=== PATIENT | female | born 1935 | race Caucasian/White ===

== ENCOUNTER 2020-01-06 12:38 | Emergency (ER) | payer MEDICARE, OTHER ==
[~2020-01-06] VITALS: Ht 167.6 cm; Wt 60.9 kg
[~2020-01-06 12:38] MED LIST: ASPI-611 PO; CARV6.253 PO; FURO40TA4 PO; LEVO75TA57 PO; LISI-644 PO; METF500T PO; POTA10TA10 PO; SIMV-42 PO
[2020-01-06 12:53] VITALS: BP 140/67
[2020-01-06] MEDS ORDERED: HYDROcodone/acetaminophen 5mg/325mg tablet PO ONE (13:45)
[2020-01-06] MEDS ORDERED: ondansetron 4mg rapidly disintigrating tab PO ONE (13:45)
[2020-01-06] MEDS ORDERED: ONDA4TAB6 PO (14:23)
[2020-01-06] MEDS ORDERED: HYDR-4383 PO (14:23)
== END 2020-01-06 14:43 | disposition home or self-care (01) ==
LOC: ER 12:38
DX: S52.591A Other fractures of lower end of right radius, initial encounter for closed fracture (principal); S52.691A Other fracture of lower end of right ulna, initial encounter for closed fracture; S52.611A Displaced fracture of right ulna styloid process, initial encounter for closed fracture; I10 Essential (primary) hypertension; E11.9 Type 2 diabetes mellitus without complications; Z90.49 Acquired absence of other specified parts of digestive tract; Z90.710 Acquired absence of both cervix and uterus; Z98.890 Other specified postprocedural states; Z91.013 Allergy to seafood; Z79.82 Long term (current) use of aspirin; Z79.899 Other long term (current) drug therapy; W17.89XA Other fall from one level to another, initial encounter; Y93.89 Activity, other specified; Y92.89 Other specified places as the place of occurrence of the external cause; Y99.8 Other external cause status
CPT/HCPCS: 29125; 73110; 99284

== ENCOUNTER 2020-06-23 05:50 | Day surgery (SDC) | payer MEDICARE, OTHER ==
[2020-06-16 15:48] LABS: BASOPHILS # (AUTO) 0.1 X10'3 (0-0.2); EOSINOPHILS # (AUTO) 0.2 X10'3 (0-0.9); EOSINOPHILS % (AUTO) 2.6 % (0-6); LYMPHOCYTES # (AUTO) 1.7 X10'3 (1.1-4.8); LYMPHOCYTES % (AUTO) 24.1 % (21-51); MEAN CORPUSCULAR HEMOGLOBIN 32.8 PG (27.0-31.0); MEAN CORPUSCULAR HGB CONC 32.9 g/dL (33.0-36.5); MEAN CORPUSCULAR VOLUME 99.7 FL (78-98); MEAN PLATELET VOLUME 8.1 FL (7.4-10.4); MONOCYTES # (AUTO) 0.9 X10'3 (0-0.9); MONOCYTES % (AUTO) 12.3 % (2-12); NEUTROPHILS # (AUTO) 4.2 X10'3 (1.8-7.7); PRE OP HEMATOCRIT 36.7 % (35.0-45.0); PRE OP HEMOGLOBIN 12.1 g/dL (12.0-16.0); PRE OP PLATELET COUNT 202 X10'3 (140-440); RED BLOOD COUNT 3.68 X10'6 (4.20-5.60); RED CELL DISTRIBUTION WIDTH 15.4 % (11.5-14.5)
[2020-06-16 16:03] LABS: ALBUMIN 4.1 G/DL (3.4-5.0); ALBUMIN/GLOBULIN RATIO 1.3 (1.1-1.5); ALKALINE PHOSPHATASE 64 IU/L (46-116); BLOOD UREA NITROGEN 20 MG/DL (7-18); BUN/CREATININE RATIO 19.8 (6.6-38.0); CALCIUM 9.2 MG/DL (8.5-10.1); CHLORIDE 106 MMOL/L (99-107); CREATININE 1.01 MG/DL (0.40-0.90); PRE OP ALT 19 U/L (30-65); PRE OP ANION GAP 8 (8-16); PRE OP AST 15 U/L (10-37); PRE OP BILIRUB, TOTAL 0.6 MG/DL (0.0-1.0); PRE OP GLUCOSE 118 MG/DL (70-104); PRE OP POTASSIUM 4.5 MMOL/L (3.4-5.1); PRE OP SODIUM 140 MMOL/L (135-145); TOTAL CARBON DIOXIDE 26.1 MMOL/L (24-32); TOTAL PROTEIN 7.2 G/DL (6.4-8.2); eGFR 52 ML/MIN
[~2020-06-23] VITALS: Ht 167.6 cm; Wt 71.7 kg
[~2020-06-23 05:50] MED LIST changes: +ACET-3080 PO; +ALLO300T35 PO; +AMLO5TAB16 PO; +ASPI-109 PO; -ASPI-611 PO; +DOCUMENT DATE & TIME OF BETA-BLOCKER PO ONE; -LEVO75TA57 PO; +LEVO88TA2 PO; -LISI-644 PO; +OLME40TA13 PO; +ceFAZolin 1GM/D5W- ADD-VANTAGE 50 ML IV ONE; +famotidine 20mg tablet PO ONE; +ringers solution, lacted 1,000 ML IV SCH
[2020-06-23 05:55] VITALS: BP 152/76
[2020-06-23] MEDS ORDERED: BUPIVAcaine/PF 2.5 mg/ml (0.25%) 30ml vial ONE (06:45)
[2020-06-23] MEDS ORDERED: BUPIVAcaine/PF 2.5mg/ml (0.25%) 10ml vial ONE (06:45)
[2020-06-23] MEDS ORDERED: LIDOcaine 0.5% (5mg/ml) 50ml vial ONE (06:49)
[2020-06-23] MEDS ORDERED: meperidine/PF 25mg/ml syringe IV PRN ×3 (06:55)
[2020-06-23] MEDS ORDERED: ringers solution, lacted 1,000 ML IV SCH (06:55)
[2020-06-23] MEDS ORDERED: morphine 4 MG/ML inj SYRINge IV PRN (06:55)
[2020-06-23] MEDS ORDERED: ondansetron/PF 4mg/2ml inj IV PRN (06:55)
[2020-06-23] MEDS ORDERED: morphine 2 MG/ML inj. syringe IV PRN (06:55)
[2020-06-23] MEDS ORDERED: proCHLORperazine 10 MG/2 ml inj IV PRN (06:55)
[2020-06-23] MEDS ORDERED: midazolam 2 mg/2 ml injection ONE (07:59)
[2020-06-23] MEDS ORDERED: fentaNYL/PF 50MCG/1 ML 2ML syringe ONE (07:59)
[2020-06-23] MEDS ORDERED: propofol inj 20 ML IV ONE (08:11)
[2020-06-23 08:26] VITALS: BP 124/61
--- NOTE | 2020-06-23 08:26 | NUR ---
Received from OR via [facility], accompanied by Anesthesiologist DR BENITEZ and report given by Anesthesiologist. 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 Addendum: 06/23/20 at 0841 by Charlotte Lawrence RN Amended: Links added.
[2020-06-23 08:36] VITALS: BP 104/63
[2020-06-23 08:46] VITALS: BP 125/63
[2020-06-23 08:56] VITALS: BP 130/66
[2020-06-23 09:06] VITALS: BP 134/66
--- NOTE | 2020-06-23 09:26 | NUR ---
PT UP TO BATHROOM, STEADY ON FEET, D/C INSTRUCTIONS GIVEN AND GONE OVER, PT VERBALIZED UNDERSTANDING, PT D/CD TO HOME VIA W/C TO PRIVATE VEHICLE W/O INCIDENT. Addendum: 06/23/20 at 0929 by Charlotte Lawrence RN Amended: Links added.
== END 2020-06-23 09:26 | disposition home or self-care (01) ==
LOC: PAS 05:50
PROVIDERS: ATTEND Orthopaedic Surgery Hand Surgery
DX: G56.01 Carpal tunnel syndrome, right upper limb (principal); E11.9 Type 2 diabetes mellitus without complications; E03.9 Hypothyroidism, unspecified; I10 Essential (primary) hypertension; Z11.59 Encounter for screening for other viral diseases; Z79.899 Other long term (current) drug therapy; Z90.710 Acquired absence of both cervix and uterus; Z90.49 Acquired absence of other specified parts of digestive tract; Z98.890 Other specified postprocedural states; Z96.653 Presence of artificial knee joint, bilateral; Z96.611 Presence of right artificial shoulder joint; Z79.84 Long term (current) use of oral hypoglycemic drugs
CPT/HCPCS: 36415; 64721; 80053; 82948; 85025; 93005; A6222; J0690; J2001; J2250; J2704; J3010; J3490; U0003; A4215; J7120

== ENCOUNTER 2022-12-31 08:42 | Outpatient (CLI) | payer MEDICARE ==
[~2022-12-31] VITALS: Ht 167.6 cm; Wt 70.3 kg
[~2022-12-31 08:42] MED LIST changes: -DOCUMENT DATE & TIME OF BETA-BLOCKER PO ONE; -OLME40TA13 PO; +OLME40TA70 PO; +POTA-188 PO; -POTA10TA10 PO; -ceFAZolin 1GM/D5W- ADD-VANTAGE 50 ML IV ONE; -famotidine 20mg tablet PO ONE; -ringers solution, lacted 1,000 ML IV SCH
[2022-12-31 10:11] LABS: ALBUMIN 4.1 G/DL (3.4-5.0); ALBUMIN/GLOBULIN RATIO 1.4 (1.1-1.5); ALKALINE PHOSPHATASE 67 IU/L (46-116); BLOOD UREA NITROGEN 19 MG/DL (7-18); BUN/CREATININE RATIO 22.1 (6.6-38.0); CALCIUM 9.1 MG/DL (8.5-10.1); CHLORIDE 105 MMOL/L (99-107); CREATININE 0.86 MG/DL (0.40-0.90); PRE OP ALT 15 U/L (30-65); PRE OP ANION GAP 12 (8-16); PRE OP AST 17 U/L (10-37); PRE OP BILIRUB, TOTAL 0.6 MG/DL (0.0-1.0); PRE OP GLUCOSE 130 MG/DL (70-104); PRE OP POTASSIUM 3.9 MMOL/L (3.4-5.1); PRE OP SODIUM 143 MMOL/L (135-145); TOTAL CARBON DIOXIDE 26.5 MMOL/L (24-32); TOTAL PROTEIN 7.1 G/DL (6.4-8.2); eGFR 62 ML/MIN
[2022-12-31 10:19] LABS: BASOPHILS # (AUTO) 0.1 X10'3 (0-0.2); BASOPHILS % (AUTO) 1.1 % (0-1); EOSINOPHILS # (AUTO) 0.3 X10'3 (0-0.9); EOSINOPHILS % (AUTO) 4.4 % (0-6); LYMPHOCYTES # (AUTO) 1.3 X10'3 (1.1-4.8); LYMPHOCYTES % (AUTO) 21.7 % (21-51); MEAN CORPUSCULAR HEMOGLOBIN 30.6 PG (27.0-31.0); MEAN CORPUSCULAR HGB CONC 32.4 g/dL (33.0-36.5); MEAN CORPUSCULAR VOLUME 94.6 FL (78-98); MONOCYTES # (AUTO) 0.6 X10'3 (0-0.9); MONOCYTES % (AUTO) 9.1 % (2-12); NEUTROPHILS # (AUTO) 3.9 X10'3 (1.8-7.7); NEUTROPHILS % (AUTO) 63.7 % (42-75); PRE OP HEMATOCRIT 36.6 % (35.0-45.0); PRE OP HEMOGLOBIN 11.9 g/dL (12.0-16.0); PRE OP PLATELET COUNT 200 X10'3 (140-440); RED BLOOD COUNT 3.87 X10'6 (4.20-5.60); RED CELL DISTRIBUTION WIDTH 15.2 % (11.5-14.5)
[2023-01-03] MEDS ORDERED: ringers solution, lacted 1,000 ML IV SCH (05:00)
[2023-01-03] MEDS ORDERED: famotidine 20mg tablet PO ONE (05:30)
[2023-01-03] MEDS ORDERED: ceFAZolin inj. 2,000 MG in dextrose 5%-water 100 ML IV ONE (05:30)
[2023-01-03] MEDS ORDERED: DOCUMENT DATE & TIME OF BETA-BLOCKER PO ONE (05:30)
== END 2022-12-31 23:59 | disposition home or self-care (01) ==
LOC: LAB 08:42 → EDSTATUS 01-03 08:45
PROVIDERS: ATTEND Orthopaedic Surgery Hand Surgery
DX: Z01.818 Encounter for other preprocedural examination (principal); G56.02 Carpal tunnel syndrome, left upper limb; E11.9 Type 2 diabetes mellitus without complications; I10 Essential (primary) hypertension; E03.9 Hypothyroidism, unspecified; Z88.5 Allergy status to narcotic agent; Z79.899 Other long term (current) drug therapy; Z79.84 Long term (current) use of oral hypoglycemic drugs; Z96.653 Presence of artificial knee joint, bilateral; Z96.611 Presence of right artificial shoulder joint; Z90.710 Acquired absence of both cervix and uterus
CPT/HCPCS: 36415; 80053; 85025; 93005; J0690; J7060; J7120

== ENCOUNTER 2023-02-10 05:17 | Day surgery (SDC) | payer MEDICARE ==
[2023-02-05 14:57] LABS: BASOPHILS % (AUTO) 0.6 % (0-1); EOSINOPHILS # (AUTO) 0.2 X10'3 (0-0.9); EOSINOPHILS % (AUTO) 3.1 % (0-6); LYMPHOCYTES # (AUTO) 1.4 X10'3 (1.1-4.8); MEAN CORPUSCULAR HEMOGLOBIN 31.7 PG (27.0-31.0); MEAN CORPUSCULAR HGB CONC 33.4 g/dL (33.0-36.5); MEAN CORPUSCULAR VOLUME 94.9 FL (78-98); MEAN PLATELET VOLUME 8.8 FL (7.4-10.4); MONOCYTES # (AUTO) 0.7 X10'3 (0-0.9); MONOCYTES % (AUTO) 8.9 % (2-12); NEUTROPHILS # (AUTO) 5.5 X10'3 (1.8-7.7); NEUTROPHILS % (AUTO) 69.4 % (42-75); PRE OP HEMATOCRIT 38.5 % (35.0-45.0); PRE OP HEMOGLOBIN 12.9 g/dL (12.0-16.0); PRE OP PLATELET COUNT 194 X10'3 (140-440); RED BLOOD COUNT 4.06 X10'6 (4.20-5.60); RED CELL DISTRIBUTION WIDTH 15.3 % (11.5-14.5)
[2023-02-05 15:12] LABS: ALBUMIN/GLOBULIN RATIO 1.2 (1.1-1.5); ALKALINE PHOSPHATASE 81 IU/L (46-116); BLOOD UREA NITROGEN 17 MG/DL (7-18); BUN/CREATININE RATIO 23.6 (10.0-20.0); CALCIUM 9.5 MG/DL (8.5-10.1); CHLORIDE 106 MMOL/L (99-107); CREATININE 0.72 MG/DL (0.40-0.90); PRE OP ALT 16 U/L (30-65); PRE OP ANION GAP 8 (8-16); PRE OP AST 18 U/L (10-37); PRE OP BILIRUB, TOTAL 0.4 MG/DL (0.0-1.0); PRE OP GLUCOSE 108 MG/DL (70-104); PRE OP POTASSIUM 4.5 MMOL/L (3.4-5.1); PRE OP SODIUM 141 MMOL/L (135-145); TOTAL CARBON DIOXIDE 26.9 MMOL/L (24-32); TOTAL PROTEIN 7.4 G/DL (6.4-8.2); eGFR 77 ML/MIN
[2023-02-10] VITALS (7 sets, daily range): BP systolic 128–145; BP diastolic 72–82
[~2023-02-10] VITALS: Ht 167.6 cm; Wt 70.9 kg
[~2023-02-10 05:17] MED LIST changes: +ringers solution, lacted 500 ML IV SCH
[2023-02-10] MEDS ORDERED: DOCUMENT DATE & TIME OF BETA-BLOCKER PO ONE (05:30)
[2023-02-10] MEDS ORDERED: famotidine 20mg tablet PO ONE (05:30)
[2023-02-10] MEDS ORDERED: cefazolin 2gm/D5W 100mL 100 ML IV ONE (05:30)
[2023-02-10] MEDS ORDERED: BUPIVAcaine/PF 2.5 mg/ml (0.25%) 30ml vial ONE (06:42)
[2023-02-10] MEDS ORDERED: ondansetron/PF 4mg/2ml inj IV PRN (07:10)
[2023-02-10] MEDS ORDERED: labetalol 20mg/4ml (5mg/ml) syringe IV PRN (07:10)
[2023-02-10] MEDS ORDERED: ringers solution, lacted 1,000 ML IV SCH (07:10)
[2023-02-10] MEDS ORDERED: morphine 2 MG/ML inj. syringe IV PRN (07:10)
[2023-02-10] MEDS ORDERED: morphine 4 MG/ML inj SYRINge IV PRN (07:10)
[2023-02-10] MEDS ORDERED: fentaNYL/PF 50MCG/1 ML 2ML syringe ONE (07:21)
[2023-02-10] MEDS ORDERED: MIDAZolam 1 MG/ML 5ML VIAL ONE (07:21)
[2023-02-10] MEDS ORDERED: LIDOcaine 0.5% (5mg/ml) 50ml vial ONE (07:22)
--- NOTE | 2023-02-10 07:47 | NUR ---
Received from OR via [facility] TO ROOM 6 RECOVERY, accompanied by Anesthesiologist TWIN and report given by Anesthesiolgist. PT PRESENTS WITH PIV 20G RIGHT AC, DRESING ON LEFT HAND/WRIST CDI, VSS. Addendum: 02/10/23 at 0810 by Terra Lopes RN, RN Amended: Links added.
--- NOTE | 2023-02-10 08:47 | NUR ---
ABLE TO SAFELY AMBULATE AND TRANSFER SELF. IV TAKEN OUT WITHOUT ANY COMPLICATIONS. ALL DISCHARGE INSTRUCTIONS COVERED WITH PATIENT AND ALL QUESTIONS ANSWERED. PATIENT TAKEN OUT VIA WHEELCHAIR TO PERSONAL VEHICLE WHERE FAMILY/FRIEND DROVE PATIENT HOME. Addendum: 02/10/23 at 0915 by Terra Lopes RN, RN Amended: Links added.
== END 2023-02-10 08:37 | disposition home or self-care (01) ==
LOC: PAS 05:17
PROVIDERS: ATTEND Orthopaedic Surgery Hand Surgery
DX: G56.02 Carpal tunnel syndrome, left upper limb (principal); Z79.899 Other long term (current) drug therapy; Z90.710 Acquired absence of both cervix and uterus; Z90.49 Acquired absence of other specified parts of digestive tract; I10 Essential (primary) hypertension; E11.9 Type 2 diabetes mellitus without complications; E03.9 Hypothyroidism, unspecified; Z96.653 Presence of artificial knee joint, bilateral; Z98.890 Other specified postprocedural states
CPT/HCPCS: 36415; 64721; 80053; 82948; 85025; A6222; J0690; J2250; J3010; J3490; J7030; J7120; Z7506; Z7512; A4215